=== PATIENT | female | born 1980 | race Two or more races ===

== ENCOUNTER 2024-12-17 00:57 | Inpatient (IN) | payer MEDICAID, SELFPAY ==
[2024-12-17] VITALS (8 sets, daily range): BP systolic 101–139; BP diastolic 53–79; PULSE 80–118; RESP 16–92; TEMP 36.8–37.4; O2SAT 95–98; BMI 30.3; BMI 32.3; BMI 33.9
--- NOTE | 2024-12-17 01:44 | XR_ITS ---
Examination: CT left lower leg with intravenous contrast, 2-D sagittal reconstructions. 2-D coronal reconstructions. 3-D reconstructions. Date and time of exam:December 17, 2024 1515 hrs. Indications: Lower leg redness swelling and pain today CTDI: vol (mGy):5.95 DLP: (mGycm):394 Technique: Multiple 1.25 mm axial sections of the 60 cc Isovue-370 have been obtained. 2-D sagittal and coronal reconstructions have been obtained. 3-D reconstructions have been obtained. Low dose protocols were performed. One or more of the following dose reduction techniques were used; automated exposure control, adjustment of the mA and/or KV according to patient size, use of iterative reconstruction technique. Findings: Edema in the subcutaneous fatty tissue No soft tissue abscess or hematoma No destinee cortical bone destruction No air density in the soft tissue Impression: Negative for soft tissue abscess Negative for osteomyelitis
--- NOTE | 2024-12-17 01:44 | XR_ITS ---
Examination: CTA chest, with intravenous contrast. CTA abdomen, with intravenous contrast. CTA pelvis, with intravenous contrast. 2-D sagittal and coronal reconstructions. 3-D reconstructions. Date and time of exam: 2024 at 0515 hrs. Indications: Onset chest pain shortness of breath today CTDI vol (mgy) 17.9 DLP (MGycm) 760 Technique: Multiple CTA images, 2.0 mm slice thickness, obtained chest, abdomen, pelvis, with the high-resolution 64 slice scanner. 100 cc Isovue-370 is administered intravenously. Sagittal and coronal 2-D reconstructions are obtained. 3-D reconstructions, angiographic images are obtained. 3-D postprocessing, including vascular maximum intensity projections. Low dose protocols were performed. One or more of the following dose reduction techniques were used; automated exposure control, adjustment of the mA and/or KV according to patient size, use of iterative reconstruction technique. Findings: No thoracic aortic aneurysm dilatation or dissection No filling defect in the pulmonary arteries Atelectasis in the lower lung zones No significant pleural disease No focal liver splenic or pancreatic lesion No bowel obstruction Normal appendix Urinary bladder intact Partially visualized fluid collection in the soft tissue lateral thigh, recommend ultrasound follow-up Impression: Negative for pulmonary artery emboli Atelectasis in the lower lung zones No bowel obstruction diverticulitis or appendicitis No focal liver or splenic lesion
--- NOTE | 2024-12-17 01:53 | XR_ITS ---
Examination: Duplex scan of the lower extremity, unilateral left Date and time of exam: December 2024 0334 hrs. Indications: Left leg pain one week Technique: Duplex scan of the extremity veins using B-mode/grayscale imaging and Doppler spectral analysis and color flow Attention is directed to internal echogenicity, compression and augmentation involving these veins, color flow assessment, spectral analysis Findings: Major deep venous structures in the extremity demonstrate normal course and caliber. Proximal left superficial femoral vein is noncompressible There is no evidence of deep vein thrombosis. Normal color flow and spectral analysis Impression: No convincing findings of deep vein thrombus
--- NOTE | 2024-12-17 03:06 | EDNOTE_ITS ---
ED Extremity Problem RME/HPI General Chief complaint: Extremity Injury, Lower Stated complaint: LEFT LEG HARD AFTER SX Time Seen by Provider: 12/17/24 01:42 Arrival date/time: 12/17/24 00:57 44F with no significant PMH presents to ED with several days of worsening LLE swelling, pain, discharge, and fevers/chills. There may also be some SOB, but patient states it could be from pain. Patient had a BBL surgery about 2 weeks ago in [place]. Patient has been taking Augmentin and doxycyline w/o relief. Limitations: no limitations Related Data Allergies Allergy/AdvReac Type Severity Reaction Status Date / Time No Known Allergies Allergy Verified 12/17/24 01:02 Review of Systems Review of Systems Systems Reviewed: All systems reviewed, normal except as documented Constitutional Constitutional: Reports system reviewed and no additional complaints, except as documented, Reports as per HPI, Reports chills, Reports fever(s) and Denies headache(s) ENT Ears, Nose, Mouth, and Throat: Denies disequilibrium and Denies headache(s) Cardiovascular Cardiovascular: Reports system reviewed and no additional complaints, except as documented, Reports as per HPI, Denies chest pain and Reports dyspnea Respiratory Respiratory: Reports system reviewed and no additional complaints, except as documented, Denies cough and Reports dyspnea Gastrointestinal Gastrointestinal: Reports system reviewed and no additional complaints, except as documented, Denies abdominal pain, Denies nausea and Denies vomiting Integumentary/Breasts Skin/Breast: Reports as per HPI, Reports skin pain and Reports skin swelling Neurologic Neurologic: Reports system reviewed and no additional complaints, except as documented, Denies confusion, Denies disequilibrium and Denies headache(s) Psychiatric Psychiatric: Denies confusion Past Medical History Social History SMOKING STATUS: Never smoker ED Exam General Limitations: Present no limitations General appearance: Present alert and in no apparent distress Head Head exam: Present atraumatic Eye Eye exam: Present normal appearance, PERRL and EOMI ENT ENT exam: Present normal exam, normal oropharynx and mucous membranes moist Neck Neck exam: Present normal inspection, full ROM and trachea midline Chest Chest inspection: Present normal inspection and symmetric chest wall rise Respiratory Respiratory exam: Present normal lung sounds bilaterally Cardiovascular Cardiovascular exam: Present regular rate, normal rhythm and normal heart sounds Abdominal Exam Abdominal exam: Present soft and normal bowel sounds Extremities Exam Extremities exam: Present full ROM Expanded Lower Extremity Exam Upper leg exam: Present full ROM (L), tenderness, swelling and erythema Back Exam Back exam: Present normal inspection and full ROM Neurological Exam Neurological exam: Present alert, oriented X3 and CN II-XII intact Psychiatric Psychiatric exam: Present normal affect and normal mood Skin Skin exam: Present warm, dry, intact and normal color Course Quality Measures none Orders Category Date Time Status COVID-19 Screening Questionnaire NOW Care 12/17/24 11:[address] Screening NOW Care 12/17/24 01:44 Active Decision to Admit X1 Care 12/17/24 10:55 Active Insert IV NOW Care 12/17/24 01:[address] angio chest abdomen pelvis Stat Exams 12/17/24 01:[address] lower leg LT w con Stat Exams 12/17/24 01:44 Completed US venous doppler LE LT Stat Exams 12/17/24 01:53 Completed Blood Culture (Lab) Stat Lab 12/17/24 03:21 Received CBC Stat Lab 12/17/24 03:21 Completed CMP [Comprehensive Metabolic Panel] Stat Lab 12/17/24 03:21 Completed HCG Qualitative,Urine Stat Lab 12/17/24 03:20 Completed INR [Prothrombin Time with INR] Stat Lab 12/17/24 03:21 Completed Lactate (Lactic Acid) Stat Lab 12/17/24 03:21 Completed Lipase Stat Lab 12/17/24 03:21 Completed PTT [Partial Thromboplastin Time] Stat Lab 12/17/24 03:21 Completed Procalcitonin Stat Lab 12/17/24 03:21 Completed Morphine Inj Med 12/17/24 04:21 Discontinued 5 mg IVP X1 ONE Piper/Tazo 3.375 gm Premix [Zosyn] Med 12/17/24 04:24 Discontinued 3.375 gm in 50 ml IV X1 Ringers Lactated 1000 ml [Lactated Ringers] 1,000 ml Med 12/17/24 04:21 Discontinued IV 250 mls/hr Vancomycin Inj 1,000 mg Med 12/17/24 04:22 Discontinued Sodium Chloride 0.9% 250 ml [Ns] 250 ml IV X1 Vital Signs Vital signs: Vital Signs Temperature 98.3 F 12/17/24 01:17 Pulse Rate 118 H 12/17/24 01:17 Respiratory Rate 18 12/17/24 01:17 Blood Pressure 139/79 H 12/17/24 01:17 Pulse Oximetry (%) 96 12/17/24 01:17 Oxygen Delivery Method Room Air 12/17/24 01:17 O2 at 96% on RA and WNLs Extremity Problem MDM Narrative MDM Narrative:: 44F with no significant PMH presents to ED with several days of worsening LLE swelling, pain, discharge, and fevers/chills. There may also be some SOB, but patient states it could be from pain. Patient had a BBL surgery about 2 weeks ago in [place]. Patient has been taking Augmentin and doxycyline w/o relief. Physical exam reveals LLE swelling, redness, and tenderness; more so on thigh region. Patient is afebrile, calm, and alert. Telerad states US has+DVT, likely infected, but in-house radiologist states unlikely DVT. Mild leukocytosis. CMP unremarkable. Coags normal. Procal/lactate normal. Turns out, CT no acute abnormalities. Patient was admitted for failed outpatient cellulitis. Patient data External records reviewed:: None Clinical information provided by:: patient Social determinants that could affect healthcare access:: none Patient has the following chronic illnesses:: none How is presenting disease/condition affected by chronic disease/condition?: no chronic disease Evaluation data The following diagnostics were reviewed and interpreted by me:: lab results and radiology exam(s) Lab and/or radiology exams considered but not ordered:: ordered Interpretation Summary: above Medications / Prescriptions Medications or Prescriptions considered but not ordered:: ordered Medication administrations:: Medication Administration History Acetaminophen (Acetaminophen 325 Mg Tablet) 650 mg PO Q6H PRN PRN Reason: PAIN(1-5) OR FEVER > 101 Stop: 01/16/25 11:07 Hydrocodone Bitart/Acetaminophen (Hydrocodone/Apap 5/325 Tablet) 1 tab PO Q4HR PRN PRN Reason: Pain Scale 6-10 (Moderate Stop: 12/22/24 11:07 Last Admin: 12/17/24 12:06 Dose: 1 tab Documented By: CAITLIN Heparin Sodium (Porcine) (Heparin Sod Inj 5000 Unit/Ml Vial) 5,000 unit SC Q12HR [facility] Stop: 12/31/24 11:14 Last Admin: 12/17/24 12:03 Dose: 5,000 unit Documented By: CAITLIN Co-signed By: MAYA Lactated Ringer's (Lactated Ringers) 1,000 mls @ 75 mls/hr IV .[id number] [facility] Stop: 01/16/25 11:14 Last Admin: 12/17/24 12:05 Dose: 75 mls/hr Documented By: CAITLIN Cefazolin Sodium (Ancef 2gm Ivpb) 2 gm in 100 mls @ 100 mls/hr IV Q8HR [facility] Stop: 12/24/24 13:38 Last Admin: 12/17/24 16:25 Dose: 100 mls/hr Documented By: CAITLIN Vancomycin/Sodium Chloride (Vancomycin/Ns 1 Gm Ivpb) 200 mls @ 120 mls/hr IV Q8HR [facility]; Protocol Stop: 12/24/24 13:59 Last Admin: 12/17/24 17:32 Dose: 120 mls/hr Documented By: CAITLIN Vancomycin/Sodium Chloride (Vancomycin/Ns 1 Gm Ivpb) 200 mls @ 120 mls/hr IV Q8HR [facility]; Protocol Stop: 12/24/24 13:59 Ondansetron HCl (Ondansetron Inj 2 Mg/Ml Inj 2 Ml) 4 mg IV Q6H PRN; Protocol PRN Reason: NAUSEA OR VOMITING Stop: 01/16/25 11:07 Pantoprazole Sodium (Pantoprazole 40 Mg Tablet) 40 mg PO QDAY [facility] Stop: 01/17/25 08:59 Pharmacy Consult (Vancomycin Pharmacy To Dose 1 Each Each) 1 each IV QDAY PRN PRN Reason: PROTOCOL Stop: 01/17/25 08:59 Discontinued Medications Lactated Ringer's (Lactated Ringers) 1,000 mls @ 250 mls/hr IV .Q4H ONE Stop: 12/17/24 08:20 Last Infusion: 12/17/24 10:41 Dose: Infused Documented By: Admin: 12/17/24 06:41 Dose: 250 mls/hr Documented By: JIMMY Vancomycin HCl 1,000 mg/ (Sodium Chloride) 250 mls @ 150 mls/hr IV X1 ONE Stop: 12/17/24 06:01 Last Infusion: 12/17/24 08:23 Dose: Infused Documented By: Admin: 12/17/24 06:42 Dose: 150 mls/hr Documented By: JIMMY Piperacillin/Tazobactam/Dextrose (Zosyn) 3.375 gm in 50 mls @ 100 mls/hr IV X1 ONE Stop: 12/17/24 04:53 Last Infusion: 12/17/24 06:28 Dose: Infused Documented By: Admin: 12/17/24 05:51 Dose: 100 mls/hr Documented By: JIMMY Morphine Sulfate (Morphine Sulf Inj 10 Mg/Ml Vial) 5 mg IVP X1 ONE Stop: 12/17/24 04:22 Last Admin: 12/17/24 05:51 Dose: 5 mg Documented By: JIMMY above Consultations Consultation(s) initiated? (list below): Yes Diagnosis Extremity Problem Differential Diagnosis: herpes zoster, gout, cellulitis, superficial thrombophlebitis, deep venous thrombosis of upper extremity, lower extremity edema, deep vein thrombosis of lower extremity and other (DVT, PE, abscess of skin) Most likely diagnosis given after review of the tests above:: cellulitis Admission Indicated Admission indicated?: indicated Admission Request Was there a request for admission?: Yes Admission Attestation Admission request attestation: Discussed case with [colleague spoke to IM resident] from Hospitalist service regarding admission. Discussed patients ED course, exam findings, labs, and radiology results. The Hospitalist [agrees] to accept the patient for admission. Disposition Plan Disposition Plan: Admit Discharge Plan Plan Patient Disposition: Admit Acute Care w/in Hospital Disposition Comment: Stable Problem List Clinical Impression: Cellulitis of left leg, Pain in left leg PA/WHEAT [employer]OWER Supervising Physician PA/WHEAT [employer]OWER Supervising Physician: Dr. whitley
[2024-12-17 03:36] LABS: Basophils # (Auto) 0.1 Thou/mm3 (0.0-0.2); Basophils % (Auto) 1 % (0-2.5); Eosinophils # (Auto) 0.3 Thou/mm3 (0.0-0.5); Eosinophils % (Auto) 2 % (0-10); Hematocrit 32.3 % (36.0-46.0); Hemoglobin 10.7 g/dL (12.0-16.0); Immature Granulocytes % (Auto) 0 % (0-0); Immature Granulocytes Auto 0.04 Thou/mm3 (0.00-0.00); Lymphocytes # (Auto) 2.3 Thou/mm3 (1.0-4.8); Lymphocytes % (Auto) 19 % (10-50); Mean Corpuscular HGB Conc 33.1 g/dl (31.0-37.0); Mean Corpuscular Hemoglobin 30.1 pg (25.0-35.0); Mean Corpuscular Volume 91 fL (80-100); Monocytes # (Auto) 0.6 Thou/mm3 (0.0-0.8); Monocytes % (Auto) 5 % (0-12); Neutrophils # (Auto) 8.8 Thou/mm3 (1.8-7.7); Neutrophils % (Auto) 72 % (37-80); Nucleated Red Blood Cell % 0 /100 WBC (0); Platelet Count 443 Thou/mm3 (140-440); RDW Standard Deviation 47.8 fL (36.4-46.3); Red Blood Count 3.56 Miln/mm3 (4.00-5.20); White Blood Count 12.1 Thou/mm3 (3.6-11.0)
[2024-12-17 03:40] LABS: HCG Qualitative,Urine Negative
[2024-12-17 03:50] LABS: Lactate (Lactic Acid) 0.6 mMol/L (0.4-2.0)
--- NOTE | 2024-12-17 04:04 | PRELIM_ITS ---
Left lower extremity venous Doppler ultrasound with wave Doppler spectral analysis. December 17, 2024 at 0210 hours Clinical history: Rule out deep vein thrombosis. Technique: Duplex scan of the left lower extremity deep venous systems was performed utilizing 2D grayscale imaging, Doppler spectral analysis and color flow Doppler and with compression. Comparison: None. Findings: Duval scale, color flow and spectral Doppler evaluation of the left lower extremity deep veins was performed. Nonocclusive thrombus in the proximal superficial femoral vein. The other veins are patent. Prominent lymph nodes with preserved morphology and fatty hilum, likely reactive in etiology. Impression: Nonocclusive thrombus in the proximal superficial femoral vein. Discussion Details: Results verbally communicated to : Dr. Lowery at 03:51 AM 12/17/2024 Report Electronically Signed By: Wan Golden 12/17/2024 4:04:14 AM [EST]
[2024-12-17 04:13] LABS: Partial Thromboplastin Time 28.7 Seconds (22.0-36.0); Prothrombin Time 10.9 Seconds (9.0-12.2)
[2024-12-17 04:16] LABS: Alanine Aminotransferase 14 U/L (10-49); Albumin, Serum 4.1 gm/dL (3.5-5.0); Albumin/Globulin Ratio 1.5 (1.2-2.2); Alkaline Phosphatase 64 U/L (46-116); Anion Gap 9 (7-16); Aspartate Amino Transferase 17 U/L (0-34); BUN/Creatinine Ratio 23 Ratio (12-20); Bilirubin,Total 0.8 mg/dL (0.3-1.2); Blood Urea Nitrogen 16 mg/dL (9-23); Calcium 9.3 mg/dL (8.3-10.6); Calcium (Corrected) 9.3 mg/dL (8.5-10.1); Carbon Dioxide 24.9 mMol/L (20.0-31.0); Chloride 105 mMol/L (98-107); Creatinine (Component) 0.7 mg/dL (0.6-1.3); Estimated Creatinine Clearance 112.8 mL/min (>60); Globulin 2.8 gm/dL (2.3-3.5); Glucose 101 mg/dL (74-106); Lipase 27 U/L (12-53); Osmolality,Calculated 278 (275-295); Potassium 3.9 mMol/L (3.4-5.1); Procalcitonin 0.21 ng/ml (0.0-0.49); Sodium 139 mMol/L (136-145); Total Protein 6.9 gm/dL (5.7-8.2); eGFR > 60 See Note
--- NOTE | 2024-12-17 04:58 | PC.NURSE ---
PATIENT TAKEN TO CT.
[2024-12-17] MEDS: MORPHINE SULF INJ 10 MG/ML VIAL 5 MG IVP (05:51)
[2024-12-17] MEDS: PIPER/TAZO 3.375 GM PREMIX 3.375 GM/50 ML BAG IV (05:51)
[2024-12-17] MEDS: RINGERS LACTATED 1000 ML 1,000 ML 250 ML IV (06:41)
[2024-12-17] MEDS: Vancomycin Inj 1,000 MG in SODIUM CHLORIDE 0.9% 250 ML 250 ML 150 MG IV (06:42)
--- NOTE | 2024-12-17 06:45 | PC.NURSE ---
LEFT UPPER LEG NOTED WITH SWELLING, RED, AND HOT TO TOUCH.
--- NOTE | 2024-12-17 08:06 | PRELIM_ITS ---
CT scan of the left lower extremity with intravenous contrast (axial sections with sagittal and coronal reformats) December 17, 2024 at 0515 hours Clinical History: Swelling/redness; s/p BBL. Comparison: No prior study is available for comparison. Findings: Imaging is performed from the knee through the foot. There is subcutaneous edema in the distal thigh and knee. No fluid collection. No soft tissue emphysema. No acute osseous process. Impression: Subcutaneous edema. No evidence of necrosis or abscess. Report Electronically Signed By: Eliel Alejandra 12/17/2024 8:05:10 AM [EST]
--- NOTE | 2024-12-17 10:23 | PRELIM_ITS ---
CT angiogram of the chest, abdomen and pelvis with intravenous contrast (axial sections with sagittal,coronal,MIP and 3D reformats) December 17, 2024 0508 hours Clinical History: SOB; s/p BBL surgery Comparison: No prior study is available for comparison at the time of interpretation Findings: The thoracic aorta is unremarkable without evidence of dissection or aneurysm. The origins of the right brachiocephalic, left common carotid and left subclavian arteries are patent. The abdominal aorta is unremarkable without evidence of dissection or aneurysm. The celiac, superior mesenteric, inferior mesenteric and bilateral renal arteries are patent to the extent visualized. The common iliac, external iliac and internal iliac arteries are patent bilaterally. There is no filling defect within the pulmonary artery divisions to suggest pulmonary thromboembolism. No evidence of mediastinal mass or lymphadenopathy. There is no pericardial effusion. Subsegmental atelectasis is seen in the right middle and bilateral lower lobes. No evidence of pleural effusion or pneumothorax. The gallbladder, spleen, pancreas, adrenals and kidneys are unremarkable. There is mild hepatomegaly . No evidence of bowel obstruction. The appendix is within normal limits). There is no significant mesenteric or retroperitoneal adenopathy. The urinary bladder is unremarkable. The uterus and adnexa are unremarkable. There is no free fluid, free air or abscess. The osseous structures are unremarkable. Small loculated subcutaneous collection is seen in the medial aspect of left proximal thigh, partially imaged. Subcutaneous edema is noted in the posterior lumbar spine. Impression: No evidence of aortic dissection or aneurysm. No evidence of pulmonary thromboembolism or other acute intrathoracic, intra- abdominal or pelvic pathology. Other findings as described above. Report Electronically Signed By: Yesica Jean 12/17/2024 10:23:00 AM [EST]
--- NOTE | 2024-12-17 10:44 | PD.EDADDENDU ---
Emergency Room Addendum Addendum Narrative: Patient was signed out to me by my colleague pending results of CT scans I reviewed the patient CT scan as well as ultrasound patient has no acute emergent findings at this time Based on symptomatology and the fact that patient has been on antibiotics on outpatient basis she will require admission for IV antibiotics and inpatient treatment Spoke with resident patient is admitted At the time of admission patient is in no distress
[2024-12-17] MEDS: HEPARIN SOD INJ 5000 UNIT/ML VIAL SC ×2 (12:03→23:37)
[2024-12-17] MEDS: RINGERS LACTATED 1000 ML 1,000 ML 75 ML IV (12:05)
[2024-12-17] MEDS: HYDROcodone/APAP 5/325 TABLET 1 TAB PO ×2 (12:06→23:24)
--- NOTE | 2024-12-17 12:29 | PC.CM ---
Patient is a 44 year-old female who presents to the hospital for cellulitis. LINSEYWSandra and GLUING MACHINE FEEDER Student Gela made [id number] contact with patient. ASW introduced self, role, and reason for visit. Patient appeared alert and oriented to self, location, and situation. Patient provided consent for GLUING MACHINE FEEDER to remain in the room during assessment. Patient was pleasant and engaged in initial assessment. Patient confirmed information on demographics. Per patient, in the event she is unable to make her own medical decision her medical decision maker is Grant Torres . At home patient ambulates independently and completes her own ADLs at home. Patient does not require the use of any DME. Patient's primary care provider [facility]. Upon discharge the patient plans to return home. early childhood services coordinator to follow up with any discharge needs.
[2024-12-17] MEDS: ceFAZolin/D5W 2 GM IV 2 GM/100 ML BAG IV ×2 (16:25→23:36)
--- NOTE | 2024-12-17 16:36 | ESHP_ITS ---
<Statement entered by Sarah Enriquez MD - 12/24/24 08:55> I reviewed above note and agree with findings and plans. I have also personally examined the patient with medicine team and went over assessment and plan with medical team including internal consultant and resident physician. Documentation for date of: 12/17/24 HPI History of Present Illness History of present illness: CC: Fever Patient is a 44-year-old female with an unremarkable past medical history. Patient deneid history of diabetes or hypertension. Patient stated she had a BBL procedure about 2 weeks ago in [place]. Patient stated she had a drain in place from the upper thigh for about 5 days after surgery and at the same site were insertion for liposuction took place. Patient stated she returned from [place] about 1 week ago. Pateint noted serous fluid draining slowly form a small lesion on her left upper thigh. Patient was told some lymphatic swelling would be normal. Patient became concern as she developed fever of 102.3 and chills overnight. Patient stated erythema noted on left upper thigh extending to medial malleolous in less than 24 hours. Patient denied trauma to site. Patient stated this her second BBL within 3 years. ER Course: Admitted on 12/17/2024 for cellulitis with leukocytosis. ER Course: Vitals BP 139/79, HR 118, RR 18, T 98.3, spO2 96% on room air WBC 12.1 Glucose 101 (denied history of diabetes), GFR >60, BUN 16, Cr 0.7, Lactic Acid 0.6, Proclacitonin 0.[address] (12/17/2024): Negative soft tissue abscess, negative osteo, EDEMA in subcutaneous fatty tissue Venous Doppler: Negative deep vein thrombus CT Ab/Pelvis: negative PE, Atelectasis in the lower lung zones, no bowel obstruction, no focal liver splenic lesion PMH: Fibroids (?) Past Surgical History: Previous BBL, 3 years ago Home Medication: None Social History: Denied illicit drug use Denied Alcohol use disorder Denied Smoking history Allergies: None Code Status: Full Code Review of Systems Review of Systems Narrative Review of Systems: General appearance: NO weight change, NO fatigue, NO weakness, YES fever, YES chills, NO night sweats, No cough Skin: NO rash, NO itching, NO sores, NO moles HEENT: NO Trauma, NO nausea, NO vomiting, NO visual changes, NO blurry vision, NO double vision, NO tinnitus, NO vertigo, NO ear discharge, NO rhinorrhea, NO stuffiness, NO sneezing, NO allergy, NO epistaxis. NO Hoarseness, NO sore throat, NO swollen neck. Cardiac: NO Palpitations, NO dyspnea on exertion, NO orthopnea, NO paroxysmal nocturnal dyspnea, NO edema Respiratory: NO Shortness of Breath, NO Wheezing, NO Cough, NO Sputum, NO hemoptysis GI:NO appetite, NO nausea, NO vomiting, NO dysphagia, NO changes in bowel frequency, NO stool color, NO diarrhea, NO constipation, NO hemetemesis, NO hemorrhoids, NO melena, NO hematechezia, NO abdominal pain, NO jaundice Renal: NO frequency, NO hesitancy, NO urgency, NO hematuria, NO nocturia, NO incontinence MSK: NO muscle weakness, NO gout, NO arthritis, NO muscle stiffness Neuro: NO headaches, NO tremors, NO weakness, NO paralysis, NO seizures, NO loss of consciousness, NO numbness. Hem: NO anemia, NO easy bruising/bleeding, NO petechiae, NO purpura Endo: NO heat/cold intolerance, NO excessive sweating, NO polyuria, NO polydipsia, NO polyphagia, NO thyroid problems, NO diabetes Pysch: NO mood, NO anxiety, NO depression Exam Vital Signs Temp Pulse Resp BP Pulse Ox O2 Del Method 98.9 F 80 16 101/53 L 95 Room Air 12/17/24 16:12 12/17/24 16:12 12/17/24 16:12 12/17/24 16:12 12/17/24 16:12 12/17/24 16:12 Narrative Exam General Appearance: Alert & Oriented X3, well-nourished female who is lying in bed in mild distress. Erythema noted on left lower extremity extending from medial upper thigh to medial malleolus HEENT: Skull symmetrical and atraumatic. Conjunctivae pin and moist. Pupils equal, round, reactive to light and accommodation (PERRL). External ear without lesion or discharge. Straight, nares patient, mucosa pink, no discharge. No thyroid nodule appreciated. No cervical lymphadenopathy. Cardio: Normal Rate and Rhythm with S1 and S2 heart sounds. No murmurs or extra heart sounds auscultated. No bruits on carotid auscultation. No peripheral edema or cyanosis. Lungs: Symmetric with good expansion. Chest and back non-tender. Breath sounds vesicular without crackles, wheezing or rhonchi Abdomen: Non-tender, Non-distended, Normal Reactive Bowel Sounds Neuro: Alert, cooperative, oriented to person, place, and time. Speech clear. CN grossly intact. Upper motor strength 5/5 and Lower motor strength 5/5. Sensation intact. Results: Labs 12/19/24 05:10 12/19/24 05:10 Labs: Short CBC 12/17/24 Range/Units 03:21 WBC 12.1 H (3.6-11.0) Thou/mm3 Hgb 10.7 L (12.0-16.0) g/dL Hct 32.3 L (36.0-46.0) % Plt Count 443 H (140-440) Thou/mm3 BMP 12/17/24 03:21 Sodium 139 Potassium 3.9 Chloride 105 Carbon Dioxide 24.9 BUN 16 Creatinine 0.7 Glucose 101 Calcium 9.3 Liver Function 12/17/24 Range/Units 03:21 Total Bilirubin 0.8 (0.3-1.2) mg/dL AST 17 (0-34) U/L ALT 14 (10-49) U/L Alkaline Phosphatase 64 (46-116) U/L Albumin 4.1 (3.5-5.0) gm/dL Quality Measures Quality Measures none Medications Home Medications and Allergies Allergies Allergy/AdvReac Type Severity Reaction Status Date / Time No Known Allergies Allergy Verified 12/17/24 01:02 Visit Medications Acetaminophen (Acetaminophen 325 Mg Tablet) 650 mg PO Q6H PRN PRN Reason: PAIN(1-5) OR FEVER > 101 Stop: 01/16/25 11:07 Hydrocodone Bitart/Acetaminophen (Hydrocodone/Apap 5/325 Tablet) 1 tab PO Q4HR PRN PRN Reason: Pain Scale 6-10 (Moderate Stop: 12/22/24 11:07 Last Admin: 12/17/24 12:06 Dose: 1 tab Heparin Sodium (Porcine) (Heparin Sod Inj 5000 Unit/Ml Vial) 5,000 unit SC Q12HR CJ Stop: 12/31/24 11:14 Last Admin: 12/17/24 12:03 Dose: 5,000 unit Lactated Ringer's (Lactated Ringers) 1,000 mls @ 75 mls/hr IV .[id number] CJ Stop: 01/16/25 11:14 Last Admin: 12/17/24 12:05 Dose: 75 mls/hr Cefazolin Sodium (Ancef 2gm Ivpb) 2 gm in 100 mls @ 100 mls/hr IV Q8HR [facility] Stop: 12/24/24 13:38 Last Admin: 12/17/24 16:25 Dose: 100 mls/hr Vancomycin/Sodium Chloride (Vancomycin/Ns 1 Gm Ivpb) 200 mls @ 120 mls/hr IV Q8HR [facility]; Protocol Stop: 12/24/24 13:59 Vancomycin/Sodium Chloride (Vancomycin/Ns 1 Gm Ivpb) 200 mls @ 120 mls/hr IV Q8HR [facility]; Protocol Stop: 12/24/24 13:59 Ondansetron HCl (Ondansetron Inj 2 Mg/Ml Inj 2 Ml) 4 mg IV Q6H PRN; Protocol PRN Reason: NAUSEA OR VOMITING Stop: 01/16/25 11:07 Pantoprazole Sodium (Pantoprazole 40 Mg Tablet) 40 mg PO QDAY [facility] Stop: 01/17/25 08:59 Pharmacy Consult (Vancomycin Pharmacy To Dose 1 Each Each) 1 each IV QDAY PRN PRN Reason: PROTOCOL Stop: 01/17/25 08:59 Discontinued Medications Lactated Ringer's (Lactated Ringers) 1,000 mls @ 250 mls/hr IV .Q4H ONE Stop: 12/17/24 08:20 Last Infusion: 12/17/24 10:41 Dose: Infused Vancomycin HCl 1,000 mg/ (Sodium Chloride) 250 mls @ 150 mls/hr IV X1 ONE Stop: 12/17/24 06:01 Last Infusion: 12/17/24 08:23 Dose: Infused Piperacillin/Tazobactam/Dextrose (Zosyn) 3.375 gm in 50 mls @ 100 mls/hr IV X1 ONE Stop: 12/17/24 04:53 Last Infusion: 12/17/24 06:28 Dose: Infused Morphine Sulfate (Morphine Sulf Inj 10 Mg/Ml Vial) 5 mg IVP X1 ONE Stop: 12/17/24 04:22 Last Admin: 12/17/24 05:51 Dose: 5 mg Assessment & Plan Plan Patient is a 44-year-old female with an unremarkable past medical history who was admitted on 12/17/2024 for cellulitis w/ Leukocytosis. #Cellulitis, #Leukocytosis Likely dry cellulitis as is flat with erythema present and flat, likely streptococcus or staphylococcus vs Erysipelis less likely as erythema is not raised vs comparment syndome as does not appear tense. Diagnostics: Lower Extremity CT (12/17/2024): Negative soft tissue abscess, negative osteo, EDEMA in subcutaneous fatty tissue Venous Doppler: Negative deep vein thrombus CT Ab/Pelvis: negative PE, Atelectasis in the lower lung zones, no bowel obstruction, no focal liver splenic lesion Plan -Consult general surgery -Vancomycin (12/17/2024--) -Cefazolin (12/17/2024--) -Zosyn D/C -blood culture -LR @ 75 ml/hr -Pain Managment: Tylenol & [place] 5 -Trend WBC #Normocytic Anemia Given recent surgery, likely secondary to acute blood loss vs microcytic anemia less likely as mcv is within normal limits vs lower GI loss cannot be ruled out. Plan -Continue to monitor -no acute intervention #Thrombocytosis Likely reactive given acute infection Plan No acute intervention - The patient's plan was discussed with attending Dr. Enriquez and senior residents Dr. Christi Song MD PGY1 Internal Medicine Senior resident attestation: Patient is a 44-year-old female, had a recent surgical procedure 2 weeks ago, BBL, had drain placed left inner thigh from the site of liposuction, complaining of severe pain and swelling along with erythematous rash came in overnight. Of note, patient had been on p.o. antibiotics Augmentin and doxycycline following the procedure for the past few days, patient was admitted to medical floor for cellulitis. Added vancomycin for MRSA coverage due to possible hospital acquired infection, as well as cefazolin, general surgery consult to Dr Wilcox was placed, CT was done which was negative for abscess or subcutaneous emphysema. Continue antibiotics, closely monitor extent of rash. Patient evaluated and examined at the bedside, plan of care discussed with rest of the team including my attending physician, except as noted. Christi PGY2
[2024-12-17] MEDS: VANCOMYCIN/NS 1 GM IVPB 200 ML IV ×2 (17:32→23:36)
[2024-12-17 23:07] LABS: Collection Type, Urine Clean Catch
[2024-12-17 23:24] LABS: Bacteria,Urine 1+; Bilirubin,Urine Negative (Negative); Blood,Urine Negative (Negative); Clarity,Urine Turbid (Clear/Hazy); Color,Urine Lt-Yellow (Lt Yel-Yel); Glucose, Urine Negative (Negative); Ketones,Urine Trace (Negative); Leukocyte Esterase,Urine Positive (Negative); Nitrite,Urine Negative (Negative); PH,Urine 6.5 (5.0-7.0); Protein,Urine Trace (Neg - Trace); RBC,Urine 2 /hpf (0-3); Specific Gravity,Urine 1.024 (1.001-1.035); Squamous Epithelial Cell,Urine 31 /hpf (0-5); Urobilinogen,Urine Negative mg/dL (0.0-1.0); WBC,Urine 4 /hpf (0-5)
[2024-12-18] VITALS: BP 106/60; PULSE 97; RESP 18; TEMP 36.1; O2SAT 96
[2024-12-18 04:00] VITALS: BP 103/58; PULSE 63; RESP 18; TEMP 36.4; O2SAT 92
[2024-12-18 05:53] LABS: Basophils % (Auto) 1 % (0-2.5); Eosinophils # (Auto) 0.3 Thou/mm3 (0.0-0.5); Eosinophils % (Auto) 5 % (0-10); Hematocrit 27.6 % (36.0-46.0); Hemoglobin 9.1 g/dL (12.0-16.0); Immature Granulocytes % (Auto) 0 % (0-0); Immature Granulocytes Auto 0.01 Thou/mm3 (0.00-0.00); Lymphocytes # (Auto) 2.4 Thou/mm3 (1.0-4.8); Lymphocytes % (Auto) 39 % (10-50); Mean Corpuscular Hemoglobin 30.2 pg (25.0-35.0); Mean Corpuscular Volume 92 fL (80-100); Monocytes # (Auto) 0.5 Thou/mm3 (0.0-0.8); Monocytes % (Auto) 7 % (0-12); Neutrophils # (Auto) 2.9 Thou/mm3 (1.8-7.7); Neutrophils % (Auto) 47 % (37-80); Nucleated Red Blood Cell % 0 /100 WBC (0); Platelet Count 390 Thou/mm3 (140-440); Red Blood Count 3.01 Miln/mm3 (4.00-5.20); White Blood Count 6.1 Thou/mm3 (3.6-11.0)
[2024-12-18] MEDS: RINGERS LACTATED 1000 ML 1,000 ML 75 ML IV (06:02)
[2024-12-18] MEDS: ceFAZolin/D5W 2 GM IV 2 GM/100 ML BAG IV ×3 (06:02→21:31)
[2024-12-18 06:22] LABS: Alanine Aminotransferase 8 U/L (10-49); Albumin, Serum 3.2 gm/dL (3.5-5.0); Albumin/Globulin Ratio 1.5 (1.2-2.2); Alkaline Phosphatase 57 U/L (46-116); Anion Gap 7 (7-16); Aspartate Amino Transferase 10 U/L (0-34); BUN/Creatinine Ratio 15 Ratio (12-20); Bilirubin,Total 0.6 mg/dL (0.3-1.2); Blood Urea Nitrogen 9 mg/dL (9-23); Calcium 7.9 mg/dL (8.3-10.6); Calcium (Corrected) 8.5 mg/dL (8.5-10.1); Carbon Dioxide 25.8 mMol/L (20.0-31.0); Cardiac Risk Estimate 3.4 RATIO (3.7-5.6); Chloride 109 mMol/L (98-107); Cholesterol 117 mg/dL (132-200); Creatinine (Component) 0.6 mg/dL (0.6-1.3); Estimated Creatinine Clearance 139.2 mL/min (>60); Globulin 2.1 gm/dL (2.3-3.5); Glucose 92 mg/dL (74-106); HDL Cholesterol 34 mg/dL (40-60); LDL Cholesterol,Calculated 63 mg/dL (0-130); Osmolality,Calculated 281 (275-295); Phosphorous 3.6 mg/dL (2.4-5.1); Potassium 3.8 mMol/L (3.4-5.1); Sodium 142 mMol/L (136-145); Total Protein 5.3 gm/dL (5.7-8.2); Triglycerides 100 mg/dL (30-150); Vancomycin,Trough 13.8 mcg/mL (5.0-10.0); eGFR > 60 See Note
[2024-12-18] MEDS: VANCOMYCIN/NS 1 GM IVPB 200 ML IV ×3 (07:00→21:32)
[2024-12-18 08:00] VITALS: BP 119/71; PULSE 92; RESP 17; TEMP 36.2; O2SAT 96
[2024-12-18] MEDS: HEPARIN SOD INJ 5000 UNIT/ML VIAL SC ×2 (08:27→21:31)
[2024-12-18] MEDS: PANTOPRAZOLE 40 MG TABLET PO (08:27)
[2024-12-18] MEDS: LACTOBACILLUS RHAMNOSUS 1 CAP PO ×2 (09:34→21:31)
--- NOTE | 2024-12-18 12:49 | ESCONSULT_ITS ---
HPI Consult details Consult date: 12/18/24 Reason for consultation narrative: Left thigh cellulitis History of present illness: 44-year-old female underwent BBL about 2 weeks ago in [place]. She was admitted with worsening pain and swelling of her left thigh and fever. CT scan did not show evidence of fluid collection or soft tissue infection. She was started on IV antibiotics with significant improvement of her symptoms. She had a drain placed after her BBL and left upper thigh and she has some drainage from the site Review of Systems Constitutional Constitutional: Denies headache(s) ENT Ears, Nose, Mouth, and Throat: Denies disequilibrium and Denies headache(s) Neurologic Neurologic: Reports system reviewed and no additional complaints, except as documented, Denies confusion, Denies disequilibrium and Denies headache(s) Psychiatric Psychiatric: Denies confusion Past Medical History Social History SMOKING STATUS: Never smoker SUBSTANCE USE: does not use ALCOHOL: Never Meds Home Medications and Allergies Allergies Allergy/AdvReac Type Severity Reaction Status Date / Time No Known Allergies Allergy Verified 12/17/24 01:02 Exam Vital Signs Temp Pulse Resp BP Pulse Ox O2 Del Method 97.2 F 92 17 119/71 96 Room Air 12/18/24 08:00 12/18/24 08:00 12/18/24 08:00 12/18/24 08:00 12/18/24 08:00 12/18/24 08:00 Constitutional Constitutional: no acute distress Routine Extremities Exam Comments: From the previous markings were placed, patient has significant improvement of cellulitis. There is no evidence of fluctuance or abscess at this time Assessment & Plan Additional Assessment Additional comments: Left thigh cellulitis, improving Plan Continue IV antibiotics and may discharge with oral antibiotics. No indications for surgical intervention, I will sign off.
[2024-12-18] MEDS: POLYETHYLENE GLYCOL 17 GM PACKET PO (13:42)
[2024-12-18 14:00] VITALS: PULSE 99; RESP 16; RESP 99
--- NOTE | 2024-12-18 15:13 | ESPR_ITS ---
<Statement entered by Sarah Enriquez MD - 12/24/24 12:55> I reviewed above note and agree with findings and plans. I have also personally examined the patient with medicine team and went over assessment and plan with medical team including nutrition intern and resident physician. Documentation for date of: 12/18/24 Subjective Subjective Interval history: No acute overnight events. Patient was seen and examined. Stated that pain significantly subsided, labs revealed improvement, leukocytosis resolved, hemoglobin is stable, no signs of bleeding. CMP unremarkable, cultures are still pending, surgery evaluated the patient, no indication for surgical intervention at this point. Recommended to continue IV antibiotics. For now we will continue same management, if patient condition continued to improve anticipate discharge in the next 24 hours. Family was at bedside all questions and concerns were addressed. Patient is agreeable with the plan. Exam Vital Signs Temp Pulse Resp BP Pulse Ox O2 Del Method 97.2 F 92 17 119/71 96 Room Air 12/18/24 08:00 12/18/24 08:00 12/18/24 08:00 12/18/24 08:00 12/18/24 08:00 12/18/24 08:00 Narrative Exam GENERAL: no acute distress, AAO x3, well nourished. HEENT: Head AT/ NC. Mucous membranes moist. PERRL. NECK: Supple, no lymphadenopathy, no carotid bruits. CARDIOVASCULAR: RRR. Normal S1/S2, No m/r/g. No pitting edema of bilateral LEs. RESPIRATORY: CTAB. No wheezing, rhonchi, crackles. GASTROINTESTINAL: Abdomen soft, non tender no palpable masses. Bowel sounds present in all 4 quadrants. MUSCULOSKELETAL:?Erythema on left lower extremity extending from inguinal area to mid thigh. 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 NEUROLOGICAL: CN II-XII grossly intact. No focal deficits. Sensation intact, symmetric. PSYCHIATRIC: Awake and alert, not agitated, normal mood and affect. INTEGUMENTARY: No obvious rashes, no jaundice, normal turgor. Objective Labs 12/18/24 05:05 12/18/24 05:05 Labs: Laboratory Results - last 24 hr 12/17/24 12/18/24 22:45 05:05 WBC 6.1 D RBC 3.01 L Hgb 9.1 L Hct 27.6 L MCV 92 MCH 30.2 MCHC 33.0 RDW Std Deviation 47.0 H Plt Count 390 D Neut % (Auto) 47 Lymph % (Auto) 39 [place] % (Auto) 7 Eos % (Auto) 5 Baso % (Auto) 1 Neut # (Auto) 2.9 Lymph # (Auto) 2.4 [place] # (Auto) 0.5 Eos # (Auto) 0.3 Baso # (Auto) 0.0 Immature Gran # (Auto) 0.01 H Absolute Nucleated RBC 0.00 Immature Gran % 0 Nucleated RBC % 0 Sodium 142 Potassium 3.8 Chloride 109 H Carbon Dioxide 25.8 Anion Gap 7 BUN 9 Creatinine 0.6 Estim Creat Clear Calc 139.2 eGFR > 60 BUN/Creatinine Ratio 15 Glucose 92 Calculated Osmolality 281 Calcium 7.9 L Corrected Calcium 8.5 Phosphorus 3.6 Magnesium 2.0 Total Bilirubin 0.6 AST 10 ALT 8 L Alkaline Phosphatase 57 Total Protein 5.3 L Albumin 3.2 L D Globulin 2.1 L Albumin/Globulin Ratio 1.5 Triglycerides 100 Cholesterol 117 L LDL Cholesterol, Calc 63 HDL Cholesterol 34 L Cholesterol/HDL Ratio 3.4 L Ur Collection Type Clean Catch Urine Color Lt-Yellow Urine Clarity Turbid A Urine pH 6.5 Ur Specific [place] 1.024 Urine Protein Trace Urine Glucose (UA) Negative Urine Ketones Trace Urine Blood Negative Urine Nitrite Negative Urine Bilirubin Negative Urine Urobilinogen (Auto) Negative Ur Leukocyte Esterase Positive Urine RBC 2 Urine WBC 4 Ur Squamous Epith Cells 31 H Urine Bacteria 1+ A Vancomycin Trough 13.8 H Quality Measures Quality Measures none Assessment & Plan Assessment Current Active Medications: Generic Name Dose Route Start Last Admin Trade Name Yadira PRN Reason Stop Dose Admin Acetaminophen 650 mg 12/17/24 11:08 Acetaminophen 325 Mg Tablet PO 01/16/25 11:07 Q6H PRN PAIN(1-5) OR FEVER > 101 Hydrocodone Bitart/Acetaminophen 1 tab 12/17/24 11:08 12/17/24 23:24 Hydrocodone/Apap 5/325 Tablet PO 12/22/24 11:07 1 tab Q4HR PRN Administration Pain Scale 6-10 (Moderate Heparin Sodium (Porcine) 5,000 unit 12/17/24 11:15 12/18/24 08:27 Heparin Sod Inj 5000 Unit/Ml Vial SC 12/31/24 11:14 5,000 unit Q12HR CJ Administration Cefazolin Sodium 2 gm in 100 mls @ 100 mls/hr 12/17/24 13:39 12/18/24 13:42 Ancef 2gm Ivpb IV 12/24/24 13:38 100 mls/hr Q8HR CJ Administration Vancomycin/Sodium Chloride 200 mls @ 120 mls/hr 12/18/24 14:00 12/18/24 13:32 Vancomycin/Ns 1 Gm Ivpb IV 12/25/24 13:59 120 mls/hr Q8HR CJ Administration Protocol Lactobacillus Rhamnosus 1 cap 12/18/24 09:15 12/18/24 09:34 Lactobacillus Rhamnosus 1 Cap PO 01/17/25 09:14 1 cap BID CJ Administration Ondansetron HCl 4 mg 12/17/24 11:08 Ondansetron Inj 2 Mg/Ml Inj 2 Ml IV 01/16/25 11:07 Q6H PRN NAUSEA OR VOMITING Protocol Pantoprazole Sodium 40 mg 12/18/24 09:00 12/18/24 08:27 Pantoprazole 40 Mg Tablet PO 01/17/25 08:59 40 mg QDAY CJ Administration Pharmacy Consult 1 each 12/18/24 09:00 Vancomycin Pharmacy To Dose 1 Each Each IV 01/17/25 08:59 QDAY PRN PROTOCOL Sennosides 1 tab 12/19/24 09:00 Senna Tablet PO 01/18/25 08:59 QDAY CJ Protocol Plan Patient is a 44-year-old female with an unremarkable past medical history who was admitted on 12/17/2024 for cellulitis w/ Leukocytosis. #Cellulitis status post BBL Presented with chief complaints of left lower extremity pain and erythema extending from the medial inguinal area to the knee. Skin is warm and tender to touch, well-demarcated, negative for local lymphadenopathy Lower Extremity CT (12/17/2024): Negative soft tissue abscess, negative osteo, EDEMA in subcutaneous fatty tissue Venous Doppler: Negative deep vein thrombus CT Ab/Pelvis: negative PE, Atelectasis in the lower lung zones, no bowel obstruction, no focal liver splenic lesion General Surgery evaluated the case, currently no indication for surgical intervention, recommended continue conservative management with IV -Vancomycin (12/17/2024--) -Cefazolin (12/17/2024--) -blood culture pending -Pain Managment: Tylenol & [place] 5 #Normocytic Anemia Given recent surgery, likely secondary to acute blood loss Plan -Continue to monitor -no acute intervention Disposition: MedSurg DVT prophylaxis: Heparin GI prophylaxis: PPI Diet: Regular Lines: PIV CODE STATUS:Full code Patient care was discussed with attending physician Dr. Mina Barboza MD PGY-2
[2024-12-18 16:00] VITALS: BP 118/72; PULSE 90; RESP 18; TEMP 36.1; O2SAT 97
--- NOTE | 2024-12-18 18:09 | PC.NURSE ---
Patient stated that her left lower leg appears larger than this morning and she feels pressure and pain. Patient posterior lower leg appears to be swollen. Dorsal pedal pulse 2+. Cap refill less than 3 seconds. MD Barboza notified.
[2024-12-18 20:00] VITALS: BP 105/55; PULSE 86; RESP 16; TEMP 36.6; O2SAT 96
[2024-12-19] VITALS: BP 127/66; PULSE 81; RESP 18; TEMP 36; O2SAT 95
[2024-12-19] MEDS: MELATONIN 3 MG TABLET PO (00:54)
[2024-12-19 04:00] VITALS: BP 117/75; PULSE 84; RESP 20; TEMP 36.8; O2SAT 97
[2024-12-19] MEDS: ceFAZolin/D5W 2 GM IV 2 GM/100 ML BAG IV ×2 (06:08→12:25)
[2024-12-19 06:11] LABS: Basophils % (Auto) 1 % (0-2.5); Eosinophils # (Auto) 0.4 Thou/mm3 (0.0-0.5); Eosinophils % (Auto) 6 % (0-10); Hematocrit 29.7 % (36.0-46.0); Hemoglobin 9.5 g/dL (12.0-16.0); Immature Granulocytes % (Auto) 0 % (0-0); Immature Granulocytes Auto 0.02 Thou/mm3 (0.00-0.00); Lymphocytes # (Auto) 2.4 Thou/mm3 (1.0-4.8); Lymphocytes % (Auto) 36 % (10-50); Mean Corpuscular Hemoglobin 29.9 pg (25.0-35.0); Mean Corpuscular Volume 93 fL (80-100); Monocytes # (Auto) 0.5 Thou/mm3 (0.0-0.8); Monocytes % (Auto) 7 % (0-12); Neutrophils # (Auto) 3.4 Thou/mm3 (1.8-7.7); Neutrophils % (Auto) 51 % (37-80); Nucleated Red Blood Cell % 0 /100 WBC (0); Platelet Count 412 Thou/mm3 (140-440); RDW Standard Deviation 48.9 fL (36.4-46.3); Red Blood Count 3.18 Miln/mm3 (4.00-5.20); White Blood Count 6.7 Thou/mm3 (3.6-11.0)
[2024-12-19] MEDS: VANCOMYCIN/NS 1 GM IVPB 200 ML IV ×2 (06:15→13:45)
--- NOTE | 2024-12-19 06:44 | PC.NURSE ---
called Dr. Cortez rearding patient not having a bowel movement since 12/14. Patient was given miralax the day before and states feels her bowels moving and passing gas, per MD will put in orders for PRN bowel regimen.
[2024-12-19 06:53] LABS: Alanine Aminotransferase 9 U/L (10-49); Albumin, Serum 3.3 gm/dL (3.5-5.0); Albumin/Globulin Ratio 1.4 (1.2-2.2); Alkaline Phosphatase 60 U/L (46-116); Anion Gap 7 (7-16); Aspartate Amino Transferase 11 U/L (0-34); BUN/Creatinine Ratio 17 Ratio (12-20); Bilirubin,Total 0.5 mg/dL (0.3-1.2); Blood Urea Nitrogen 10 mg/dL (9-23); Calcium 8.2 mg/dL (8.3-10.6); Calcium (Corrected) 8.8 mg/dL (8.5-10.1); Carbon Dioxide 25.7 mMol/L (20.0-31.0); Chloride 109 mMol/L (98-107); Creatinine (Component) 0.6 mg/dL (0.6-1.3); Globulin 2.3 gm/dL (2.3-3.5); Glucose 93 mg/dL (74-106); Magnesium 2.1 mg/dL (1.6-2.6); Osmolality,Calculated 282 (275-295); Potassium 4.1 mMol/L (3.4-5.1); Sodium 142 mMol/L (136-145); Total Protein 5.6 gm/dL (5.7-8.2); eGFR > 60 See Note
[2024-12-19 08:00] VITALS: BP 124/70; PULSE 88; RESP 18; TEMP 36.6; O2SAT 96
[2024-12-19] MEDS: LACTOBACILLUS RHAMNOSUS 1 CAP PO (08:08)
[2024-12-19] MEDS: PANTOPRAZOLE 40 MG TABLET PO (08:08)
[2024-12-19] MEDS: SENNA TABLET 1 TAB PO (08:10)
[2024-12-19] MEDS: HEPARIN SOD INJ 5000 UNIT/ML VIAL SC (08:10)
[2024-12-19 12:00] VITALS: BP 111/58; PULSE 81; RESP 18; TEMP 36.3; O2SAT 94
--- NOTE | 2024-12-19 13:03 | ESDS_ITS ---
<Statement entered by Sarah Enriquez MD - 12/24/24 12:56> I reviewed above note and agree with findings and plans. I have also personally examined the patient with medicine team and went over assessment and plan with medical team including project management intern and resident physician. Planned Discharge Date 12/19/24 DS: Providers Provider Date of admission: 12/17/24 11:08 Primary care physician: Physician No Primary/Family Admitting Provider: Sarah Enriquez MD Attending Provider on Admission: Sarah Enriquez MD Consults: 12/17/24 13:43 Consult to General Surgery Routine Comment: s/p BBL, cellulitis on medial left leg Consulting Provider: Erasmo Wilcox 12/17/24 23:11 Referral Joanna Routine Comment: Referral Respiratory Therapy Routine Comment: Attending Provider on DC: Federica Song MD Discharging Provider: Federica Song MD DS: Diagnosis Problem List Completed Was Problem List Reviewed/Reconciled?: Yes Hospital Course Hospital Course Hospital course: Summary: Patient is a 44-year-old female with an unremarkable past medical history who was admitted on 12/17/2024 for cellulitis with Leukocytosis. ER course: Vitals BP 139/79, HR 118, RR 18, T 98.3, spO2 96% on room air WBC 12.1 Glucose 101 (denied history of diabetes), GFR >60, BUN 16, Cr 0.7, Lactic Acid 0.6, Proclacitonin 0.[address] (12/17/2024): Negative soft tissue abscess, negative osteo, EDEMA in subcutaneous fatty tissue Venous Doppler: Negative deep vein thrombus CT Ab/Pelvis: negative PE, Atelectasis in the lower lung zones, no bowel obstruction, no focal liver splenic lesion Hospital Course: Patient is a 40-year-old female with a limited past medical history who was admitted for cellulitis of the left medial lower extremities secondary to a recent BBL. Patient stated that she began to develop fever and chills on December 16, 2024 and an erythematous rash appeared on her medial thigh that quickly spread down to her medial malleolus of the left lower extremity. Patient stated the procedure was done approximately 2 weeks ago in [place] left lower extremity had liposuction. Patient's leg was warm to the touch and stated pain was 10 out of 10 with ambulation. Imaging obtained CTA chest negative for pulmonary emboli, atelectasis present in the lower lung lobes likely secondary to recent surgery, negative for bowel obstruction. CT of the lower extremity showed no soft tissue abscess, negative for osteomyelitis, and edema in the subcutaneous fatty tissue noted. Venous Doppler sound was negative for thrombus. Patient was started on antibiotics with cefazolin and vancomycin. Blood cultures obtained negative after 48 hours. Patient WBC down trended from 12.1 is 6.7. Vitals are stable. No temperature noted since admission. #Cellulitis status post BBL, improved. #Leukocytosis, Resolved. #Normocytic Anemia -Please take Cephalexin 500 mg twice a day and Doxycycline 100 mg twice daily for skin infection to complete 12 day course of antibiotics -Please follow up with your primary care provider within one week of discharge -Please elevate leg to reduce swelling. -If your symptoms worsen,please seek immediate medical attention and return to your nearest emergency room -If you do not have a primary care provider, you may follow up at the [facility] at [address] [place] [address] [address], [place] [address], Safe and stable to return home. - The patient's plan was discussed with attending Dr. Mina Song MD PGY1 Internal Medicine Time Spent with Patient Time attestation: Total time spent providing and/or coordinating discharge services: at least 30 minutes of care and coordination Time spent: Greater than 30 minutes Exam Vital Signs Temp Pulse Resp BP Pulse Ox O2 Del Method 97.4 F 81 18 111/58 L 94 L Room Air 12/19/24 12:12/19/24 12:12/19/24 12:12/19/24 12:12/19/24 12:12/19/24 12:00 Narrative Exam General Appearance: Alert & Oriented X3, well-nourished female who is lying in bed in no acute distress. Mild erythema noted on medial left lower extremity. Tenderness on ambulation. HEENT: Skull symmetrical and atraumatic. Conjunctivae pin and moist. Pupils equal, round, reactive to light and accommodation (PERRL). External ear without lesion or discharge. Straight, nares patient, mucosa pink, no discharge. No thyroid nodule appreciated. No cervical lymphadenopathy. Cardio: Normal Rate and Rhythm with S1 and S2 heart sounds. No murmurs or extra heart sounds auscultated. No bruits on carotid auscultation. No peripheral edema or cyanosis. Lungs: Symmetric with good expansion. Chest and back non-tender. Breath sounds vesicular without crackles, wheezing or rhonchi Abdomen: Non-tender, Non-distended, Normal Reactive Bowel Sounds Neuro: Alert, cooperative, oriented to person, place, and time. Speech clear. CN grossly intact. Upper motor strength 5/5 and Lower motor strength 5/5. Sensation intact. Discharge Plan Plan Patient Disposition: HOME (Self Care) Disposition Comment: Stable Patient condition on transfer: Stable Care Plan Goals: Instructions: -Please take Cephalexin 500 mg twice a day and Doxycycline 100 mg twice daily for skin infection to complete 12 day course of antibiotics -Please follow up with your primary care provider within one week of discharge -Please elevate leg to reduce swelling. -If your symptoms worsen,please seek immediate medical attention and return to your nearest emergency room -If you do not have a primary care provider, [facility] [address], [place] [address], Prescriptions/Referrals Prescriptions/Med Rec: New cephalexin 500 mg capsule 500 mg PO BID 10 Days Qty: 20 0RF doxycycline hyclate 100 mg capsule 100 mg PO BID 10 Days Qty: 20 0RF Referrals: No Primary/Family,Physician [Primary Care Provider] - Patient/Caregiver Discharge Instructions Education Materials: Managing Post-Op Pain at Home, ED Cellulitis Print Language: [place] Island[place] Stand Alone Forms: Damaris Award Info., Patient Portal Info Letter Discharge Order Discharge Orders: Discharge (Routine); Ordered 12/19/24 Ordered By: Federica Song Quality Discharge Quality Measures VTE prophylaxis
== END 2024-12-19 16:06 | disposition home or self-care (01) | DRG 383 ==
LOC: SERX 11:05 → SERHOLD 12:00 → S3SX 22:33
PROVIDERS: Physician Assistant; Student in an Organized Health Care Education/Training Program; Admitting Provider Internal Medicine; Emergency Provider Emergency Medicine; Visit Provider Internal Medicine
DX: L03.116 Cellulitis of left lower limb (principal); D64.9 Anemia, unspecified; D75.839 Thrombocytosis, unspecified; J98.11 Atelectasis
CPT/HCPCS: 36415; 71275; 73701; 74174; 80053; 80061; 80202; 81001; 81025; 83605; 83690; 83735; 84100; 84145; 85025; 85610; 85730; 87040; 87086; 93971; 94762; 96361; 96365; 96366; 96367; 96372; 96375; 99285; A4649; J0689; J1643; J2270; J2543; J3370; J3371; J7050; J7120; Q9967; A9270

== ENCOUNTER 2024-12-22 09:10 | Outpatient (AMB) | payer MEDICAID, SELFPAY ==
[2024-12-22 10:08] VITALS: BP 123/79; PULSE 93; RESP 18; TEMP 36.8; O2SAT 96; BMI 30.1
--- NOTE | 2024-12-22 10:08 | PD.RESCLINIC ---
Vital Signs 12/22/24 10:08 Height 1.68 m Height Method Stated Weight 84.595 kg Weight Measurement Method Standing Scale BMI 30.1 BP 123/79 Blood Pressure Source Automatic Cuff Blood Pressure Location Left Upper Arm Position Sitting Respiration 18 Pulse 93 Pulse Source Monitor Temp 98.3 F Temp Source Temporal Artery Scan Pulse Oximetry (%) 96 Oxygen Delivery Method Room Air Allergies/Meds Allergies & Medications Allergies No Known Allergies Allergy (Verified 12/25/24 08:35) Medication Reconciliation cephalexin 500 mg capsule 500 mg PO BID Cellulitis 10 days #20 caps 12/19/24 [Rx Confirmed 12/22/24] doxycycline hyclate 100 mg capsule 100 mg PO BID Cellulitis 10 days #20 caps 12/19/24 [Rx Confirmed 12/22/24] MA Intake Visit Data Collection New Patient or Established: Established Patient (seen at [facility] within 3 years) Seen by Clinical Staff ONLY (RN/MA): No Pain Present Currently: No Pain scale:: 0 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 PCP or OBGYN visit in last 3 months: No Hx Now: No Do You Feel Safe at Home: Yes Authorities Contacted: N/A Smoking Status Smoking Status: Never smoker Immunization / Flu Flu Vaccine in the Last 12 Months: No Flu Vaccine Exclusion Criteria: No Exclusion Criteria Past Medical History Past Medical History CARDIAC: Negative Cardiac Disorders or Congestive Heart Failure RESPIRATORY: Negative Chronic Obstructive Pulmonary Disease (COPD) or Asthma GENITOURINARY: Negative Renal Disease ENDOCRINE: Negative Diabetes Mellitus Type 1 or Diabetes Mellitus Type 2 HEMATOLOGIC: Negative Sickle Cell Disease Social History SMOKING STATUS: Smoking status: Never smoker ALCOHOL: Alcohol Intake: Never HOUSING: Housing: House LIVES WITH: Lives With: Spouse Patient Portal [place] Social History Living Situation History Housing: House Tobacco History Smoking Status: Never smoker Alcohol History Alcohol Intake: Never Domestic Abuse History Do You Feel Safe at Home: Yes Review of Systems Report any current symptoms Only answer those that you have currently: Past Medical History Past Medical History Have you ever been diagnosed with any of the following: Cardiology Problems Congestive Heart Failure: No Respiratory Problems Chronic Obstructive Pulmonary Disease (COPD): No Asthma: No Genital/Urinary Problems Renal Disease: No Endocrine Problems Diabetes Mellitus Type 1: No Diabetes Mellitus Type 2: No Blood Problems Sickle Cell Disease: No History of Present Illness HPI Narrative Patient is a 44 year old female with a limited past medical history who was recently discharged form [facility] for celluliitis secondary to a BBL and sent home with Keflex and doxy to complete antibiotic course. Patient's BBL procedure done out of state in [place]. During hospitilization, CT lower extremity of left leg noted to have edema in the subcutaneous fatty tissue. Patient was discharged on 12/19/2024 and has continue to take antibiotics. Patinet has denied fever or chills at home. No erythema noted. Left medial thigh still has induration present with edema noted. Patient is complaining of increasing swelling when she walks and tenderness to area. Given this was elective surgery, advised patient to return and update plastic surgeon that did procedure. Advised patient to seek medical attention from a plastic surgeon to follow up. BG recommended and mild compression to site to reduce seroma. Review of Systems Review of Systems Narrative Review of Systems: General appearance: NO weight change, NO fatigue, NO weakness, NO fever, NO chills, NO night sweats, No cough. YES tenderness and edema noted to left medial thigh. Skin: NO rash, NO itching, NO sores, NO moles HEENT: NO Trauma, NO nausea, NO vomiting, NO visual changes, NO blurry vision, NO double vision, NO tinnitus, NO vertigo, NO ear discharge, NO rhinorrhea, NO stuffiness, NO sneezing, NO allergy, NO epistaxis. NO Hoarseness, NO sore throat, NO swollen neck. Cardiac: NO Palpitations, NO dyspnea on exertion, NO orthopnea, NO paroxysmal nocturnal dyspnea, NO edema Respiratory: NO Shortness of Breath, NO Wheezing, NO Cough, NO Sputum, NO hemoptysis GI:NO appetite, NO nausea, NO vomiting, NO dysphagia, NO changes in bowel frequency, NO stool color, NO diarrhea, NO constipation, NO hemetemesis, NO hemorrhoids, NO melena, NO hematechezia, NO abdominal pain, NO jaundice Renal: NO frequency, NO hesitancy, NO urgency, NO hematuria, NO nocturia, NO incontinence MSK: NO muscle weakness, NO gout, NO arthritis, NO muscle stiffness Neuro: NO headaches, NO tremors, NO weakness, NO paralysis, NO seizures, NO loss of consciousness, NO numbness. Hem: NO anemia, NO easy bruising/bleeding, NO petechiae, NO purpura Endo: NO heat/cold intolerance, NO excessive sweating, NO polyuria, NO polydipsia, NO polyphagia, NO thyroid problems, NO diabetes Pysch: NO mood, NO anxiety, NO depression Objective/Exam Narrative Physical exam: General Appearance: Alert and Orientated x3, well-nourished female who is sitting on exam room. Mild induration noted on left medial thigh, with no erythema noted, and not warm to tough. No serous fluid noted on physical exam. Thorax/Lungs: Symmetrical with good expansion. Chest and back non-tender. Lungs resonant to percussion. Breath sounds vesicular without crackles, wheezes, or rhonchi Cardiovascular/Peripheral Vascular: No jugular venous distention noted. S1 and S2 heart sounds regular, no murmurs or extra heart sounds auscultated. No peripheral edema noted. Abdomen: Bowel sounds are active. No tenderness to deep or light palpation. Assessment & Plan Diagnosis / Problem List (1) Cellulitis of left leg: Status: Acute Assessment & Plan: Patient recently discharged from hospital with a diagnosis of cellulitis secondary to a recent BBL w/ fat harvested from both leg on December 02, 2024. Upon discharge, erythema had resolved and patient denied any fevers or chills at home. Patient is concern that there is still tenderness and residual seroma noted on physical exam. Medial seroma noted likely from fat harvested for BBL. Plan -Please complete antibiotic course with Keflex and Doxy -Please follow up with your plastic surgeon that did initial procedure -Advised patient to seek plastic surgeon in [place] or [place]. Unsure if this would be covered by her current insurance as this is a complication following an elective surgical procedure paid for in [place]. -if symptoms worsen, including warmth to touch, pyrexia, or erythema, please seek immediate medical attention. Additional Assessment - The patient's plan was discussed with attending Dr. Hong Song MD PGY1 Internal Medicine Internal Medicine Attending Note: Case discussed with and agree with note and management plan of Resident Physician as per Resident's Note above. Issues of concern for present visit are as follows: New patient to clinic. Recent hospitalization at [facility] for cellulitis secondary to cosmetic surgery procedure that was done in [place]. ([place]izen [place] butt lift). Patient had fat harvested from the thigh area. CT of the left leg noted edema in the subcutaneous fatty tissue. Patient was discharged from hospital 3 days prior on Keflex and doxycycline. There is still induration and edema present on the left medial thigh, patient notes increasing swelling when she walks. The area is tender. Patient needs compression of this area as well as rest and elevation. Patient inquired about the possibility of needle aspiration of any fluid in the area (needle aspiration of seroma). If this was to be done, it would need to be done in interventional radiology so that this could be imaged at the time of aspiration. I would be reluctant to do this given recent infection. Additionally, even if we did aspirate fluid, I am concerned that it would simply recur. She may need some sort of sclerotherapy of this if it does not resolve, or even excision. In any case, she needs to update the plastic surgeon that did the procedure and potentially follow-up with him for further treatment. If she cannot return to [place] for this, she will need to see a plastic surgeon in either [place] or [place]. Continue antibiotics and complete full course. Fredy Pitts MD Physician Billing New Patient New Patient: E/M Level 3-CPT 79454 Office Procedures [facility] Level of Care Nursing/Assessment Patient Status: Established Patient Nursing Assessment/Reassessment: Medication Reconciliation, Update PMH in EMR and Vital Signs Coordination of Care: Complex Care and Chronic Disease 1-5, Consent,records obtained, informed consent, Education Simp Pt/Fam and Staff clarify orders Established Patient Charge Established Patient Point Assignment: 85 Established Patient Point Charge: Level 3 (80-115)
== END 2024-12-22 10:52 | disposition home or self-care (01) ==
LOC: HODAHC 09:10
PROVIDERS: Supervising Provider Internal Medicine
DX: L03.116 Cellulitis of left lower limb (principal)
CPT/HCPCS: 99213; G0463

== ENCOUNTER 2024-12-25 08:25 | Emergency (ER) | payer MEDICAID, SELFPAY ==
[2024-12-25 08:29] VITALS: BMI 30.2
[2024-12-25 08:40] VITALS: BP 134/77; PULSE 95; RESP 18; TEMP 36.7; O2SAT 96
--- NOTE | 2024-12-25 09:21 | EDNOTE_ITS ---
ED Extremity Problem RME/HPI General Chief complaint: Extremity Problem,Nontraumatic Stated complaint: INFECTION LEFT UPPER LEG, RECENT HOSPITALIZED FOR Time Seen by Provider: 12/25/24 09:15 Arrival date/time: 12/25/24 08:25 RME / HPI RME / HPI Narrative: 44 year old female with history of BBL surgery performed 3 weeks ago in [place] otherwise no other chronic medical history reported presents to the ED for evaluation of left lower extremity pain today. States she was admitted here for left lower extremity cellulitis and sent home with Cephalexin and Doxycycline. States she has taken the antibiotics however noted the burning sensation worsening in the last day, located most to the left upper inner thigh area. No worsening redness or discoloration. Denies fevers or chills. No other associated symptoms or complaints. Related Data Previous Rx's ?Medication ?Instructions ?Recorded cephalexin 500 mg capsule 500 mg PO BID Cellulitis 10 days 12/19/24 #20 caps doxycycline hyclate 100 mg capsule 100 mg PO BID Cellu litis 10 days 12/19/24 #20 caps Allergies Allergy/AdvReac Type Severity Reaction Status Date / Time No Known Allergies Allergy Verified 12/25/24 08:35 Review of Systems Review of Systems Narrative Review of Systems: Gen: No fever, no chills, no weight loss EYES: No discharge, no visual changes, no pain HEENT: No ear pain, no congestion, no sore throat PULM: no shortness of breath, no cough, no congestion CV: No chest pain, no palpitations, no chest tightness GI: No nausea, no vomiting, no diarrhea, no pain, no constipation : No frequency, no urgency,? no dysuria Musc/skel: No joint pain, no back pain Skin: +burning pain to left inner thigh with some discoloration. No rash, no lesions Neuro: No weakness, no headache Past Medical History Past Medical History CARDIAC: Negative Cardiac Disorders or Congestive Heart Failure RESPIRATORY: Negative Chronic Obstructive Pulmonary Disease (COPD) or Asthma GENITOURINARY: Negative Renal Disease ENDOCRINE: Negative Diabetes Mellitus Type 1 or Diabetes Mellitus Type 2 HEMATOLOGIC: Negative Sickle Cell Disease Social History SMOKING STATUS: Never smoker SUBSTANCE USE: does not use ED Exam Narrative Physical exam: GENERAL APPEARANCE: AxOx4, no obvious distress, nontoxic appearing HEENT: NC, AT. MMM. EOMI, clear conjunctiva, oropharynx clear. NECK: Supple without lymphadenopathy. No stiffness or restricted ROM. HEART: Normal rate and regular rhythm, normal S1/S1, no m/r/g LUNGS: CTAB, moving air well. No crackles or wheezes are heard. ABDOMEN: Soft, nontender, nondistended with good bowel sounds heard. BACK: No midline C/T/L spine pain or deformity, No CVAT, no obvious deformity. EXTREMITIES: Mild ecchymotic discoloration to left upper thigh, warm to touch, no increased warmth, no erythema. Without cyanosis, clubbing or edema. MUSCULOSKELETAL: FROM of all major joints, no chest tenderness. NEUROLOGICAL: Grossly nonfocal. Alert and oriented, moving all 4 extremities. CN not formally tested but appear grossly intact. Skin: Warm and dry without any rash. Course Quality Measures none Vital Signs Vital signs: Vital Signs Temperature 98.1 F 12/25/24 08:40 Pulse Rate 95 12/25/24 08:40 Respiratory Rate 18 12/25/24 08:40 Blood Pressure 134/77 H 12/25/24 08:40 Pulse Oximetry (%) 96 12/25/24 08:40 Oxygen Delivery Method Room Air 12/25/24 08:40 Pulse ox is 96% on room air which is adequate. Extremity Problem MDM Narrative MDM Narrative:: Scarlet John am scribing for and in the presence of Dr. Boyd. Patient data External records reviewed:: [facility] previous records (I reviewed admission last week ) Clinical information provided by:: patient Social determinants that could affect healthcare access:: none Patient has the following chronic illnesses:: BBL performed 3 weeks ago, recent admission for LLE cellulitis How is presenting disease/condition affected by chronic disease/condition?: exacerbated by Evaluation data The following diagnostics were reviewed and interpreted by me:: other (specify) (No diagnostics orderd ) Lab and/or radiology exams considered but not ordered:: None Interpretation Summary: As noted above Medications / Prescriptions Medications or Prescriptions considered but not ordered:: None Medication administrations:: None Consultations Consultation(s) initiated? (list below): No Diagnosis Extremity Problem Differential Diagnosis: cellulitis, superficial thrombophlebitis and lower extremity edema Most likely diagnosis given after review of the tests above:: Cellulitis of left leg Admission Indicated Admission indicated?: not indicated Admission Request Was there a request for admission?: No Disposition Plan Disposition Plan: Discharge Discharge Attestation Discharge Attestation: The patient and all family members were given an opportunity to ask questions and understood the discharge instructions. Discharge instructions specifically effects, indications for sooner follow up or return to the emergency department, and the expected course of current diagnosis. Patient condition: Stable Discharge Plan Plan Patient Disposition: HOME (Self Care) Prescriptions/Referrals Prescriptions/Med Rec: No Action cephalexin 500 mg capsule 500 mg PO BID 10 Days Qty: 20 0RF doxycycline hyclate 100 mg capsule 100 mg PO BID 10 Days Qty: 20 0RF Problem List Clinical Impression: Cellulitis of left leg Patient/Caregiver Discharge Instructions Education Materials: ED Cellulitis Additional Instructions: La herida se ve gerard hoy. Contin?e con los antibi?ticos seg?n lo prescrito. Acuda a la cl?yenny del centro acad?clinton la pr?xima semana para lynn nueva revisi?n. Puede regresar a urgencias antes si los s?ntomas empeoran o si nota alg?n problema nuevo o preocupante. Print Language: [place] Stand Alone Forms: Damaris Award Info., Patient Portal Info Letter
[2024-12-25 09:24] VITALS: BP 119/77; PULSE 85; RESP 18; TEMP 36.9; O2SAT 96
== END 2024-12-25 09:28 | disposition home or self-care (01) ==
LOC: SERX 09:31
PROVIDERS: Emergency Provider Emergency Medicine
DX: L03.116 Cellulitis of left lower limb (principal)
CPT/HCPCS: 99281